=== PATIENT | female | born 1955 | race Caucasian/White ===

== ENCOUNTER 2018-05-21 21:24 | Inpatient (IN) ==
[2018-05-21] MEDS ORDERED: Morphine Inj 4 MG/ML Vial IV.PUSH ONE (21:49)
[2018-05-21] MEDS ORDERED: Famotidine PF Inj 20 MG/2 ML Vial IV.PUSH ONE (21:49)
[2018-05-21] MEDS ORDERED: Sod Chloride 0.9% Inj 1,000 ML IV.CONT SCH (22:00)
--- NOTE | 2018-05-21 22:11 | XR ---
EXAM DATE: 05/21/2018 9:58 PM EST AGE/SEX: 62 years / Female INDICATIONS: Short of breath. CLINICAL DATA: This is the patient's initial encounter. Patient reports that signs and symptoms have been present for 1 day and indicates a pain score of 0/10. MEDICAL/SURGICAL HISTORY: Hypercholesterolemia. Hypertension. Appendectomy. COMPARISON: No prior exams available for comparison. FINDINGS: The heart size is normal. The lungs are free of focal consolidation. There is a possible calcified gr anuloma in the left lower lung. No effusion is seen. CONCLUSION: No acute cardiopulmonary process. Electronically signed by: Trev Kessler MD Board Certified Radiologist 05/21/2018 10:10 PM EST
--- NOTE | 2018-05-21 22:12 | ED ---
HPI General Chief Complaint: Abdominal Pain Stated Complaint: Abd Pain/Diarrhea/Vomiting [id number] Time Seen by Provider: 05/21/18 21:49 Source: patient Mode of arrival: ambulatory Limitations: no limitations History of Present Illness HPI narrative: 62-year-old female with history of hypertension and GERD no previous abdominal surgeries presents to the emergency department for complaint of 4 days of progressively worsening abdominal pain 9/10 in intensity associated with nausea vomiting no hematemesis no coffee-ground emesis no bilious emesis and frequent watery diarrhea associated with blood and mucus. Patient states that she has had similar type symptoms although less intense less severe and shorter in duration over the past 6 months. Patient is visiting here from [place]. Patient arrived here 4 days ago. Patient states 5-6 days ago she denies any dietary indiscretion well water ingestion or foreign travel that may have precipitated the symptoms. has been eating the same foods. Couple bought a house here and has been here working on the house and the just recently came to the area. Patient states over the past 6 months when she is being having episodes of vomiting abdominal pain and diarrhea she has not discussed it with her primary care provider in [place]. Patient states she presents now because over the past 4 days symptoms have worsened. Patient reports subjective fever and reports recorded fever around 100 F. Patient also reports having some headache. No sinus pressure drainage no sore throat no earache no neck stiffness no reported chest pain or shortness of breath or cough. Patient denies any dysuria frequency or urgency. Patient is unable to identify exacerbating or alleviating factors. Patient is not able to correlate symptoms with dietary intake. Patient does have history of hypertension and GERD and has been taking her medications as prescribed. Headache is not sudden onset thunderclap or worst ever. Symptoms are worsened by her sitting upright abdominal symptoms are improved by resting supine. MD complaint: Reports abdominal pain Onset (ago): day(s) (4 days; 6 months intermittently) Pain Consistency: intermittent Location: Reports periumbilical, LUQ and RUQ Severity: severe Severity scale (1-10): 9 Quality: Reports cramping, aching, fullness and dull Radiation: Reports none Migration to: Reports periumbilical, LUQ and RUQ Relieving factors: nothing Exacerbating factors: nothing Context: Reports history of similar episodes ("less intense over the past 6 months); Denies foreign travel, possible food poisoning, sick contacts, recent antibiotic use, recent surgery/procedure and recent injury Associated symptoms: Reports nausea, vomiting, diarrhea, fever ("around 100F") and chills; Denies constipation, dysuria, hematemesis, hematochezia, melena, hematuria, anorexia and syncope Treatments prior to arrival: Denies NSAIDs, prescription analgesics and antacids Related Data Home Medications Medication Instructions Recorded Confirmed omeprazole 40 mg PO DAILY 05/21/18 05/21/18 valsartan 40 mg PO DAILY 05/21/18 Allergies Allergy/AdvReac Type Severity Reaction Status Date / Time Penicillins Allergy Severe Hives Verified 05/21/18 22:31 Review of Systems ROS: all other systems reviewed are negative PMFSH History History Provided By: Patient (htn gerd) Medical History Medical History Acid reflux (Acute) High blood pressure (Acute) Uterine fibroid (Acute) Social History Social History Substance History: No History of Abuse Smoking Status: Never smoker How Often Do You Have a Drink Containing Alcohol: 4 or more times a week Recent Travel in [facility] within the Last 8 Weeks: Yes Recent Out of Country Travel within the Last 8 Weeks: No Exam Narrative Exam Narrative: GENERAL: Well-nourished, well-developed patient. No acute distress no respiratory distress SKIN: Focused skin assessment warm/dry. HEAD: Normocephalic. EYES: No scleral icterus. No injection or drainage. NECK: Supple, trachea midline. No JVD or lymphadenopathy. CARDIOVASCULAR: Regular rate and rhythm without murmurs, gallops, or rubs. Bilateral radial and dorsalis pedis pulses 2+ to palpation RESPIRATORY: Breath sounds equal bilaterally. No accessory muscle use. GASTROINTESTINAL: Abdomen soft, diffusely tender primarily bilateral upper quadrants and periumbilical area however mild bilateral lower quadrant tenderness left greater than right to palpation without guarding or rebound, nondistended. MUSCULOSKELETAL: No cyanosis, or edema. BACK: Nontender without obvious deformity. No CVA tenderness. Course Initial Documented Vital Signs Temperature 98.2 F 05/21/18 21:28 Pulse Rate 113 H 05/21/18 21:28 Respiratory Rate 18 05/21/18 21:28 Blood Pressure 145/71 H 05/21/18 21:28 Pulse Oximetry 97 05/21/18 21:28 Last Documented Vital Signs Temperature 98.2 F 05/21/18 21:28 Pulse Rate 78 05/21/18 23:24 Respiratory Rate 16 05/21/18 23:26 Blood Pressure 113/67 05/21/18 23:24 Pulse Oximetry 99 05/21/18 23:24 Medical Decision Making MDM Narrative Medical decision making narrative: 62-year-old female presents to the emergency department for complaint of 4 days of worsening abdominal pain with crampy discomfort frequent diarrhea watery dark in color with blood and mucus and episodes of nausea and vomiting. IV access obtained specimens collections sent for resulting patient administered IV fluids, Zofran, Pepcid, and morphine sulfate. Patient will be kept n.p.o. CT abdomen pelvis ordered. CBC with automated differential total white cell count is 15,300 with 84% neutrophils; chemistries remarkable for being grossly within normal range; lactic acid is not elevated 1.0; AST and ALT are mildly elevated; lipase is elevated at 497; UA shows ketones otherwise unremarkable; chest x-ray is normal ; CT abdomen pelvis with IV contrast the appendix is normal does show some mesenteric misting and no obstruction or diverticulitis some hepatic steatosis. Patient presents with heart rate of 113 white cell count of 15,300 with abdominal pain with diarrheal illness and elevated lipase Discussed patient with Dr. Parr who will admit for observation for n.p.o. status IV fluid rehydration reassess lipase and white count as well as Sirs/ sepsis status. Medical Screen Exam Complete: Yes Emergency Medical Condition: Yes Differential Diagnosis Differential Diagnosis: Abdominal pain, gastritis, enteritis, pancreatitis, biliary colic, cholecystitis, peptic ulcer disease, diverticulitis, colitis, UTI , viral syndrome, food poisoning, influenza, dehydration Medical Records Medical records reviewed: Yes I reviewed the patient's medical records. no prior visits Lab Data Lab results reviewed: Yes I reviewed the patient's lab results. Result diagrams: 05/21/18 21:20 05/21/18 21:20 Lab Results 05/21/18 05/21/18 05/21/18 Range/Units 21:15 21:20 21:20 CBC w Diff WBC (4.0-11.0) th/mm3 RBC (4.00-5.30) mil/mm3 Hgb (11.6-15.3) gm/dL Hct (35.0-46.0) % MCV (80.0-100.0) fL MCH (27.0-34.0) pg MCHC (32.0-36.0) % RDW (11.6-17.2) % Plt Count (150-450) th/mm3 MPV (7.0-11.0) fL Neut % (Auto) (16.0-70.0) % Lymph % (Auto) (9.0-44.0) % Meigs % (Auto) (0.0-8.0) % Eos % (Auto) (0.0-4.0) % Baso % (Auto) (0.0-2.0) % Neut # (Auto) (1.8-7.7) th/mm3 Lymph # (Auto) (1.0-4.8) th/mm3 Meigs # (Auto) (0.0-0.9) th/mm3 Eos # (Auto) (0.0-0.4) th/mm3 Baso # (Auto) (0.0-0.2) th/mm3 WBC Differential Differential Comment PT 10.0 (9.8-11.6) sec INR 1.0 Ratio APTT 27.0 (23.4-31.7) sec Sodium (136-145) meq/L Potassium (3.5-5.1) meq/L Chloride (98-107) meq/L Carbon Dioxide (21.0-32.0) meq/L Anion Gap (5-15) meq/L BUN (7-18) mg/dL Creatinine (0.50-1.00) mg/dL Estimated GFR (>89) mL/min Random Glucose (74-106) mg/dL Lactic Acid 1.0 (0.4-2.0) mmol/L Calcium (8.5-10.1) mg/dL Magnesium (1.5-2.5) mg/dL Total Bilirubin (0.2-1.0) mg/dL AST (15-37) U/L ALT (10-53) U/L Alkaline Phosphatase (45-117) U/L Total Protein (6.4-8.2) g/dL Albumin (3.4-5.0) g/dL Lipase (73-393) U/L Urine Color Yellow (Yellw/Straw) Urine Clarity Clear (Clear) Urine pH 6.5 (5.0-8.5) Ur Specific [place] 1.020 (1.002-1.035) Urine Protein Negative (Neg-Trace) mg/dL Urine Glucose (UA) Negative (Negative) mg/dL Urine Ketones 40 H (Negative) mg/dL Urine Occult Blood Small H (Negative) Urine Nitrate Negative (Negative) Urine Bilirubin Negative (Negative) Urine Urobilinogen 0.2 (Less than 2) mg/dL Ur Leukocyte Esterase Negative (Negative) Urine RBC 0-3 (0-3) /hpf Urine WBC 0-5 (0-5) /hpf Ur Squamous Epith Cells 0-5 (0-5) /hpf Urine Mucus Few H (Occasional) /lpf Micro UA Comment Culture not ind Ur Microscopic Review Microscopic reviewed Urine Culture Comments Culture not ind Blood Type Blood Type Recheck Antibody Screen 05/21/18 05/21/18 05/21/18 Range/Units 21:20 21:20 21:30 CBC w Diff Auto diff final WBC 15.3 H (4.0-11.0) th/mm3 RBC 3.89 L (4.00-5.30) mil/mm3 Hgb 13.5 (11.6-15.3) gm/dL Hct 39.5 (35.0-46.0) % MCV 101.7 H (80.0-100.0) fL MCH 34.7 H (27.0-34.0) pg MCHC 34.1 (32.0-36.0) % RDW 12.6 (11.6-17.2) % Plt Count 229 (150-450) th/mm3 MPV 8.4 (7.0-11.0) fL Neut % (Auto) 84.1 H (16.0-70.0) % Lymph % (Auto) 5.2 L (9.0-44.0) % Meigs % (Auto) 9.9 H (0.0-8.0) % Eos % (Auto) 0.1 (0.0-4.0) % Baso % (Auto) 0.7 (0.0-2.0) % Neut # (Auto) 12.9 H (1.8-7.7) th/mm3 Lymph # (Auto) 0.8 L (1.0-4.8) th/mm3 Meigs # (Auto) 1.5 H (0.0-0.9) th/mm3 Eos # (Auto) 0.0 (0.0-0.4) th/mm3 Baso # (Auto) 0.1 (0.0-0.2) th/mm3 WBC Differential . Differential Comment . PT (9.8-11.6) sec INR Ratio APTT (23.4-31.7) sec Sodium 131 L (136-145) meq/L Potassium 3.7 (3.5-5.1) meq/L Chloride 97 L (98-107) meq/L Carbon Dioxide 22.9 (21.0-32.0) meq/L Anion Gap 11 (5-15) meq/L BUN 15 (7-18) mg/dL Creatinine 0.94 (0.50-1.00) mg/dL Estimated GFR 61 L (>89) mL/min Random Glucose 114 H (74-106) mg/dL Lactic Acid (0.4-2.0) mmol/L Calcium 8.3 L (8.5-10.1) mg/dL Magnesium 2.0 (1.5-2.5) mg/dL Total Bilirubin 1.0 (0.2-1.0) mg/dL AST 77 H (15-37) U/L ALT 65 H (10-53) U/L Alkaline Phosphatase 109 (45-117) U/L Total Protein 8.1 (6.4-8.2) g/dL Albumin 3.7 (3.4-5.0) g/dL Lipase 497 H (73-393) U/L Urine Color (Yellw/Straw) Urine Clarity (Clear) Urine pH (5.0-8.5) Ur Specific [place] (1.002-1.035) Urine Protein (Neg-Trace) mg/dL Urine Glucose (UA) (Negative) mg/dL Urine Ketones (Negative) mg/dL Urine Occult Blood (Negative) Urine Nitrate (Negative) Urine Bilirubin (Negative) Urine Urobilinogen (Less than 2) mg/dL Ur Leukocyte Esterase (Negative) Urine RBC (0-3) /hpf Urine WBC (0-5) /hpf Ur Squamous Epith Cells (0-5) /hpf Urine Mucus (Occasional) /lpf Micro UA Comment Ur Microscopic Review Urine Culture Comments Blood Type O Negative Blood Type Recheck Required Antibody Screen Negative Imaging Data Radiologist's impression: Abdomen/Pelvis CT 05/21/18 21:49 CONCLUSION: 1. Induration of the central mesentery in the mid to lower abdomen. This is nonspecific. This can be seen with mesenteric panniculitis. This findings recently called a shyam mesentery sign. It can be associated with lymphoma or other carcinomas. There are no other potential signs of lymphoma or other carcinomas. 2. Hepatic steatosis with 2 focal hepatic lesions. These can be further evaluated with a abdominal MRI examination using a liver protocol. This could be performed on a nonemergent basis as an outpatient. 3. Suspected atelectasis at the lung bases. 4. Calcified leiomyomas. Chest X-Ray 05/21/18 21:49 CONCLUSION: No acute cardiopulmonary process. Discharge Plan Discharge Disposition Patient Disposition: ED Admit(ED Internal Use Only) Discharge Condition Condition: Stable Discharge Order Discharge Orders: ED Use Only Admit Order (Routine); Ordered 05/22/18 Ordered By: Sana Petty Discharge Details Diagnosis: Abdominal pain, Elevated lipase, SIRS (systemic inflammatory response syndrome) Physicians Team ED Provider: Sana Petty Primary Care Provider: NON STAFF,PROVIDER Rxs /Orders / Referrals /Forms Prescriptions: No Action valsartan 40 mg Tablet 40 mg PO DAILY RF: 0 omeprazole 40 mg Capsule,Delayed Release(Dr/Ec) 40 mg PO DAILY RF: 0 Status ED Status: With Doctor
[2018-05-21 22:17] LABS: Baso # (Auto) 0.1 th/mm3 (0.0-0.2); Baso % (Auto) 0.7 % (0.0-2.0); Eos % (Auto) 0.1 % (0.0-4.0); Hematocrit 39.5 % (35.0-46.0); Hemoglobin 13.5 gm/dL (11.6-15.3); Lymph # (Auto) 0.8 th/mm3 (1.0-4.8); Lymph % (Auto) 5.2 % (9.0-44.0); Mean Corpuscular HGB Conc 34.1 % (32.0-36.0); Mean Corpuscular Hemoglobin 34.7 pg (27.0-34.0); Mean Corpuscular Volume 101.7 fL (80.0-100.0); Mean Platelet Volume 8.4 fL (7.0-11.0); Mono # (Auto) 1.5 th/mm3 (0.0-0.9); Mono % (Auto) 9.9 % (0.0-8.0); Neut # (Auto) 12.9 th/mm3 (1.8-7.7); Neut % (Auto) 84.1 % (16.0-70.0); Platelet Count 229 th/mm3 (150-450); Red Blood Count 3.89 mil/mm3 (4.00-5.30); Red Cell Distribution Width 12.6 % (11.6-17.2); White Blood Count 15.3 th/mm3 (4.0-11.0)
[2018-05-21 22:26] LABS: Chloride 97 meq/L (98-107); Potassium 3.7 meq/L (3.5-5.1); Sodium 131 meq/L (136-145)
[2018-05-21 22:30] LABS: Albumin 3.7 g/dL (3.4-5.0); Anion Gap 11 meq/L (5-15); Calcium 8.3 mg/dL (8.5-10.1); Carbon Dioxide 22.9 meq/L (21.0-32.0); Glucose,Random 114 mg/dL (74-106); Lipase 497 U/L (73-393)
[2018-05-21 22:31] LABS: Blood Urea Nitrogen 15 mg/dL (7-18)
[2018-05-21 22:31] LABS: Bilirubin,Urine Negative (Negative); Clarity,Urine Clear (Clear); Color,Urine Yellow (Yellw/Straw); Glucose,Urine (UA) Negative (Negative); Leukocyte Esterase,Urine Negative (Negative); Nitrite,Urine Negative (Negative); PH,Urine 6.5 (5.0-8.5); Urobilinogen,Urine 0.2 mg/dL (Less than 2)
[2018-05-21 22:33] LABS: Alanine Aminotransferase 65 U/L (10-53); Aspartate Aminotransferase 77 U/L (15-37); Glomerular Filtration Rate 61 mL/min (>89)
[2018-05-21 22:35] LABS: Total Protein 8.1 g/dL (6.4-8.2)
[2018-05-21 22:36] LABS: Mucus,Urine Few /lpf (Occasional); RBC,Urine 0-3 /hpf (0-3); Squamous Epithelial Cell,Urine 0-5 /hpf (0-5); WBC,Urine 0-5 /hpf (0-5)
[2018-05-21 22:36] LABS: Alkaline Phosphatase 109 U/L (45-117)
--- NOTE | 2018-05-21 23:06 | CT ---
EXAM DATE: 05/21/2018 10:55 PM EST AGE/SEX: 62 years / Female INDICATIONS: Abdominal pain and diarrhea. CLINICAL DATA: This is the patient's initial encounter. Patient reports that signs and symptoms have been present for 4 - 6 days and indicates a pain score of 9/10. MEDICAL/SURGICAL HISTORY: . Uterine fibroids. None. ORAL CONTRAST: No oral contrast ingested. RADIATION DOSE: 8.65 CTDI (mGy) COMPARISON: No prior exams available for comparison. TECHNIQUE: Multiple contiguous axial images were obtained through the abdomen and pelvis following b olus infusion of 100 ml Omnipaque 350 (iohexol) nonionic water-soluble contrast as a single exam do se. No oral contrast ingested. Using automated exposure control and adjustment of the mA and/or kV a ccording to patient size, radiation dose was kept as low as reasonably achievable to obtain optimal d iagnostic quality images. DICOM format image data is available electronically for review and compari son. FINDINGS: Lower Lungs: There is some linear density seen at the lower lobes bilaterally likely related to atele ctasis. Liver: There is diffuse decreased density seen throughout the liver. There are 2 focal lesions includ ing a 2 cm low-density mass in the superior aspect of the right lobe of the liver and a more subtle 1 .6 mm or hypodense mass seen in the medial segment left lobe of the liver. The gallbladder is not dis tended. There is a focal 0.7 cm area of increased density seen in the inferior aspect of the gallblad john. The gallbladder wall does not appear thickened. Significant biliary dilatation is not seen. Spleen: Homogeneous density without enlargement. Pancreas: Unremarkable without mass or calcification. Kidneys: Normal in size and shape. No evidence of mass or hydronephrosis. Adrenal Glands: Unremarkable. Aorta: The aorta and proximal iliac vessels are grossly unremarkable without aneurysmal dilation. Bowel/Mesentery: There is hazy density seen in the central aspect of the mesentery. There are some s mall lymph nodes seen in the central mesentery measuring up to 0.7 cm. And induration is seen in the central mid abdomen extending down to nearly the pelvic inlet region. Significant dilatation or thick ening of the bowel is not seen. The appendix is seen and appears normal. Abdominal Wall: Intact. Retroperitoneum: No evidence of adenopathy in the retrocrural, para-aortic, or deep pelvic regions. Bladder: Contours are smooth. Reproductive Organs: There are multiple calcified lesions seen throughout the uterus consistent with leiomyomatous change. Inguinal: The inguinal region is unremarkable without evidence of adenopathy. Bony Structures: Degenerative change in the lumbar spine. CONCLUSION: 1. Induration of the central mesentery in the mid to lower abdomen. This is nonspecific. This can be seen with mesenteric panniculitis. This findings recently called a shyam mesentery sign. It can be a ssociated with lymphoma or other carcinomas. There are no other potential signs of lymphoma or other carcinomas. 2. Hepatic steatosis with 2 focal hepatic lesions. These can be further evaluated with a abdominal M RI examination using a liver protocol. This could be performed on a nonemergent basis as an outpatien t. 3. Suspected atelectasis at the lung bases. 4. Calcified leiomyomas. Electronically signed by: Trev Kessler MD Board Certified Radiologist 05/21/2018 11:04 PM EST
[2018-05-22] MEDS ORDERED: Ciprofloxacin 400 MG/200 ML 400 MG/200 ML PIGGYBACK IV.SIG ONE (00:04)
[2018-05-22] MEDS ORDERED: Sod Chloride 0.9% Inj 1,000 ML IV.SIG ONE (00:05)
[2018-05-22] MEDS ORDERED: Bisacodyl 10 MG Supp RECTAL PRN (00:20)
[2018-05-22] MEDS ORDERED: Morphine Sulfate Inj 2 MG/ML Vial IV.PUSH PRN (00:28)
[2018-05-22] MEDS: Acetaminophen 325 MG Tablet PO PRN ×3 (02:17→23:39)
[2018-05-22] MEDS: Morphine Inj 4 MG/ML Vial IV.PUSH PRN (09:33)
[2018-05-22] MEDS: Ciprofloxacin 400 MG/200 ML 400 MG/200 ML PIGGYBACK IV.SIG SCH (13:29)
[2018-05-22 15:16] LABS: Hepatitis A IgM Antibody Nonreactive (Nonreactive); Hepatitits B Surface Antigen Nonreactive (Nonreactive)
--- NOTE | 2018-05-22 16:26 | P.HPIM ---
History of Present Illness Primary Care Physician: PROVIDER NON STAFF Chief Complaint: diarrhea for 4 days History of Present Illness: 62 yo M with h/o GERD and HTN from [place],been here in [place] for 4 days, presented with diarrhea. Reports diarrhea about 6-7 episodes per day,associated with abdominal pain, subjective fever, chills. Stools said to be watery, with mucous, sometimes dark.no sick contacts. no recent travel except for coming here to [place]. Also has nausea, vomiting. Has associated headache.No urinary symptoms. No chest pain or shortness of breath. No nasal or ear symptoms. Reports having weekly episodes of nausea/vomiting for the last 6 months, symptoms usually not immediate, may happen in the morning. ROS is negative except as stated above. 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 labs significant for leucocytosis 15,mildly elevated liver enzymes. MRI abdomen was ordered from ER. Patient was admitted to the medical floor for further mx. - Review of Systems Review of Systems: all other systems reviewed are negative [facility] Medical History Medical History Acid reflux (Acute) High blood pressure (Acute) Uterine fibroid (Acute) Social History Social History Substance History: No History of Abuse Second Hand Smoke Exposure: No Smoking Status: Never smoker How Often Do You Have a Drink Containing Alcohol: 4 or more times a week Recent Travel in [facility] within the Last 8 Weeks: Yes Recent Out of Country Travel within the Last 8 Weeks: No Immunization History Tetanus Immunization: <5 Years Hx Influenza Vaccine This Season: No Medications and Allergies Allergies Allergy/AdvReac Type Severity Reaction Status Date / Time Penicillins Allergy Severe Hives Verified 05/21/18 22:31 Home Medications Medication Instructions Recorded Confirmed Type omeprazole 40 mg PO DAILY 05/21/18 05/21/18 History valsartan 40 mg PO DAILY 05/21/18 History Active Medications: Active Medications Acetaminophen (Tylenol) 650 mg PO Q4H PRN PRN Reason: Temp > 100.4 Last Admin: 05/22/18 13:29 Dose: 650 mg Al Hydroxide/Mg Hydroxide (Milk Of Magnesia Liq) 30 ml PO Q12H PRN PRN Reason: Mild Constipation Bisacodyl (Dulcolax Supp) 10 mg RECTAL DAILY PRN PRN Reason: SEVERE CONSITIPATION Ciprofloxacin/Dextrose (Cipro 400 Mg/200 Ml Inj) 400 mg in 200 mls @ 200 mls/ hr IV.SIG Q12H [facility] Last Infusion: 05/22/18 14:33 Dose: Infused Metronidazole/Sodium Chloride (Flagyl 500 Mg Inj) 100 mls @ 100 mls/hr IV.SIG Q8H [facility] Last Infusion: 05/22/18 09:22 Dose: Infused Lactulose (Lactulose Liq) 30 ml PO DAILY PRN PRN Reason: SEVERE CONSITIPATION Morphine Sulfate (Morphine Inj) 2 mg IV.PUSH Q3H PRN PRN Reason: PAIN SCALE 1 TO 10 Last Admin: 05/22/18 09:33 Dose: 2 mg Ondansetron HCl (Zofran Inj) 4 mg IV.PUSH Q6H PRN PRN Reason: NAUSEA OR VOMITING Sennosides (Senokot) 17.2 mg PO Q12H PRN PRN Reason: Moderate Constipation Sodium Chloride (Ns Flush) 2 ml IV.FLUSH PRN PRN PRN Reason: FLUSH AFTER USING IV ACCESS Sodium Chloride (Ns Flush) 2 ml IV.FLUSH BID [facility] Last Admin: 05/22/18 08:30 Dose: Not Given Sodium Chloride (Ns Flush) 2 ml IV.FLUSH PRN PRN PRN Reason: FLUSH AFTER USING IV ACCESS Physical Exam Vital signs: Last Vital Signs Temp 100.3 F H 05/22/18 12:00 Pulse 90 05/22/18 12:00 Resp 20 05/22/18 12:00 BP 128/74 05/22/18 12:00 Pulse Ox 96 05/22/18 12:00 Intake & Output 05/20/18 05/21/18 05/22/18 05/23/18 06:59 06:59 06:59 06:59 Intake Total 1300 / 1300 1300 / 1300 Balance 1300 / 1300 1300 / 1300 Weight 60.9 kg Narrative: GENERAL: middle aged woman, in good general condition, not in distress. HEENT: not pale,anicteric. CARDIOVASCULAR: Regular rate and rhythm without murmurs, gallops, or rubs. RESPIRATORY: Clear to auscultation. Breath sounds equal bilaterally. No wheezes , rales, or rhonchi. GASTROINTESTINAL: Abdomen soft, non-tender, nondistended. Normal active bowel sounds MUSCULOSKELETAL: Extremities without clubbing, cyanosis, or edema. NEURO: Alert & Oriented x4 to person, place, time, situation. Moves all ext x4 Results Labs CBC & Chem 7: 05/21/18 21:20 05/21/18 21:20 Imaging Impressions Abdomen/Pelvis CT 05/21/18 21:49 CONCLUSION: 1. Induration of the central mesentery in the mid to lower abdomen. This is nonspecific. This can be seen with mesenteric panniculitis. This findings recently called a shyam mesentery sign. It can be associated with lymphoma or other carcinomas. There are no other potential signs of lymphoma or other carcinomas. 2. Hepatic steatosis with 2 focal hepatic lesions. These can be further evaluated with a abdominal MRI examination using a liver protocol. This could be performed on a nonemergent basis as an outpatient. 3. Suspected atelectasis at the lung bases. 4. Calcified leiomyomas. Chest X-Ray 05/21/18 21:49 CONCLUSION: No acute cardiopulmonary process. Caprini VTE Risk Assessment Caprini VTE Risk Assessment: No/Low Risk (score <= 1) Caprini Risk Assessment Model: Point Value = 1 Point Value = 2 Point Value = 3 Point Value = 5 Age 41-60 Minor surgery BMI > 25 kg/m2 Swollen legs Varicose veins or History of unexplained or recurrent spontaneous Oral contraceptives or hormone replacement Sepsis (< 1 month) Serious lung disease, including pneumonia (< 1 month) Abnormal pulmonary function Acute myocardial infarction Congestive heart failure (< 1 month) History of inflammatory bowel disease Medical patient at bed rest Age 61-74 Arthroscopic surgery Major open surgery (> 45 min) Laparoscopic surgery (> 45 min) Malignancy Confined to bed (> 72 hours) Immobilizing plaster cast Central venous access Age >= 75 History of VTE Family history of VTE Factor V Leiden Prothrombin [id number] Lupus anticoagulant Anticardiolipin antibodies Elevated serum homocysteine Heparin-induced thrombocytopenia Other congenital or acquired thrombophilia Stroke (< 1 month) Elective arthroplasty Hip, pelvis, or leg fracture Acute spinal cord injury (< 1 month) Prophylaxis Regimen: Total Risk Factor Score Risk Level Prophylaxis Regimen 0-1 Low Early ambulation 2 Moderate Order ONE of the following: *Sequential Compression Device (SCD) *Heparin 5000 units SQ BID 3-4 Higher Order ONE of the following medications: *Heparin 5000 units SQ TID *Enoxaparin/Lovenox 40 mg SQ daily (WT < 150 kg, CrCl > 30 mL/min) *Enoxaparin/Lovenox 30 mg SQ daily (WT < 150 kg, CrCl > 10-29 mL/min) *Enoxaparin/Lovenox 30 mg SQ BID (WT < 150 kg, CrCl > 30 mL/min) AND/OR *Sequential Compression Device (SCD) 5 or more Highest Order ONE of the following medications: *Heparin 5000 units SQ TID (Preferred with Epidurals) *Enoxaparin/Lovenox 40 mg SQ daily (WT < 150 kg, CrCl > 30 mL/min) *Enoxaparin/Lovenox 30 mg SQ daily (WT < 150 kg, CrCl > 10-29 mL/min) *Enoxaparin/Lovenox 30 mg SQ BID (WT < 150 kg, CrCl > 30 mL/min) AND *Sequential Compression Device (SCD) Assessment and Plan Plan 62 yo F with h/o GERD, HTN who presented with 4 day h/o diarrhea and abdominal pain. Abdominal pain/Diarrhea: etiology unclear, may be gastroenteritis. 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 obtain stool cultures, follow up blood cultures, check hepatitis A serology. keep on IV Cipro and Flagyl for now. Mildly elevated liver enzymes--likely related to hepatic steatosis.check viral hepatitis w/up. h/o GERD-continue Omeprazole. DVT ppx-low risk, ambulate H&P: Quality VTE Deep Vein Thrombosis/Pulmonary Embolism Present on Admission: No
[2018-05-22] MEDS ORDERED: Gadobutrol PF 7.5 MMOL/7.5 ML Vial (for RAD) IV.SIG ONE (17:40)
--- NOTE | 2018-05-22 17:58 | MR ---
EXAM DATE: 05/22/2018 5:43 PM EST AGE/SEX: 62 years / Female INDICATIONS: Abdominal pain. Abnormal CT. Liver lesions. CLINICAL DATA: This is the patient's initial encounter. Patient reports that signs and symptoms have been present for 3 days and indicates a pain score of 4/10. MEDICAL/SURGICAL HISTORY: None. . Fibroids removed. COMPARISON: [facility], CT ABDOMEN & PELVIS W CONTRAST, 05/21/2018. . TECHNIQUE: Multiplanar, multisequence images of the abdomen were obtained prior to and following adm inistration of 6.5 ml Gadavist (gadobutrol) contrast as a single exam dose with dynamic multiphase te chnique. FINDINGS: Liver: The liver measures 17 cm in length and demonstrates signal loss on out of phase imaging indica ting steatosis. At the liver dome in the region of segment 8 there is a T2 hyperintense lesion measur ing approximately 2.2 x 2.1 x 1.7 cm. It appears to have a septation along the superior aspect. Follo wing contrast administration no definite internal enhancement is appreciated. The low-density area id entified within segment [address] measures approximately 1.6 cm on this examination and appears to represent an area of more focal severe steatosis. Hepatic vasculature demonstrates no abnormality. No bile duct dilatation is appreciated. Gallbladder: There is a suspected a stone in the fundus and a curvilinear low signal intensity struct ure on the T2 sequence in the gallbladder is not definitively seen on the other sequences. No gallbla dder wall thickening is identified. Spleen: Within normal limits. Pancreas: Within normal limits. Adrenals: Within normal limits. Kidneys: Symmetric size and enhancement. No hydronephrosis is present. There is a macroscopic fat-con taining mass arising from the lower pole of the left kidney measuring approximately 2.8 x 2.5 cm. Other: Aorta is nonaneurysmal and no lymphadenopathy is seen. Inflammatory changes remain present in the central small bowel mesentery. CONCLUSION: 1. Hepatic steatosis with nonenhancing lesion in segment 8 measuring 2.2 cm likely representing a mi nimally complex cyst. The other suspected lesion identified on recent CT has features suggestive of m ore severe focal steatosis. No suspicious liver lesion is identified. 2. 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 3. Persistent inflammatory change within the central small bowel mesentery. Electronically signed by: Trev Stewart MD Board Certified Radiologist 05/22/2018 5:57 PM EST
[2018-05-23] MEDS: Ciprofloxacin 400 MG/200 ML 400 MG/200 ML PIGGYBACK IV.SIG SCH ×2 (00:47→14:34)
[2018-05-23] MEDS: Morphine Inj 4 MG/ML Vial IV.PUSH PRN ×5 (00:50→23:37)
[2018-05-23 06:46] LABS: Baso % (Auto) 0.2 % (0.0-2.0); Eos # (Auto) 0.1 th/mm3 (0.0-0.4); Eos % (Auto) 0.4 % (0.0-4.0); Hematocrit 36.5 % (35.0-46.0); Lymph # (Auto) 0.9 th/mm3 (1.0-4.8); Mean Corpuscular Hemoglobin 34.5 pg (27.0-34.0); Mean Corpuscular Volume 104.4 fL (80.0-100.0); Mean Platelet Volume 9.3 fL (7.0-11.0); Mono # (Auto) 1.7 th/mm3 (0.0-0.9); Mono % (Auto) 13.2 % (0.0-8.0); Neut % (Auto) 79.2 % (16.0-70.0); Platelet Count 176 th/mm3 (150-450); Red Blood Count 3.49 mil/mm3 (4.00-5.30); White Blood Count 12.7 th/mm3 (4.0-11.0)
[2018-05-23 07:13] LABS: Chloride 97 meq/L (98-107); Potassium 3.2 meq/L (3.5-5.1); Sodium 131 meq/L (136-145)
[2018-05-23 07:23] LABS: Alanine Aminotransferase 33 U/L (10-53); Albumin 2.9 g/dL (3.4-5.0); Alkaline Phosphatase 88 U/L (45-117); Anion Gap 10 meq/L (5-15); Aspartate Aminotransferase 27 U/L (15-37); Blood Urea Nitrogen 15 mg/dL (7-18); Glomerular Filtration Rate 74 mL/min (>89); Glucose,Random 110 mg/dL (74-106); Total Protein 6.9 g/dL (6.4-8.2)
--- NOTE | 2018-05-23 10:35 | P.PNIM ---
Subjective Interval history: abdominal pain is improving, she did not have diarrhea episodes last night. Less bloated today. Physical Exam Vital signs: Last Vital Signs Temp 97.4 F L 05/23/18 04:00 Pulse 81 05/23/18 04:00 Resp 20 05/23/18 10:08 BP 119/67 05/23/18 04:00 Pulse Ox 95 05/23/18 04:00 Intake & Output 05/21/18 05/22/18 05/23/18 05/24/18 06:59 06:59 06:59 06:59 Intake Total 1300 / 1300 2800 / 2800 100 / 100 Output Total 200 / 200 Balance 1300 / 1300 2600 / 2600 100 / 100 Weight 60.9 kg 61 kg Narrative: GENERAL: middle aged woman, in good general condition, not in distress. HEENT: not pale,anicteric. CARDIOVASCULAR: Regular rate and rhythm without murmurs, gallops, or rubs. RESPIRATORY: Clear to auscultation. Breath sounds equal bilaterally. No wheezes , rales, or rhonchi. GASTROINTESTINAL: Abdomen soft, mildly tender, nondistended. Normal active bowel sounds MUSCULOSKELETAL: Extremities without clubbing, cyanosis, or edema. NEURO: Alert & Oriented x4 to person, place, time, situation. Moves all ext x4 Results Labs CBC & Chem 7: 05/23/18 05:25 05/23/18 05:25 Labs: Microbiology 05/21/18 21:20 Blood - Peripheral Aerobic Blood Culture - Preliminary No growth in 1 day 05/21/18 21:20 Blood - Peripheral Anaerobic Blood Culture - Preliminary No growth in 1 day 05/21/18 21:20 Blood - Peripheral Aerobic Blood Culture - Preliminary No growth in 1 day 05/21/18 21:20 Blood - Peripheral Anaerobic Blood Culture - Preliminary No growth in 1 day Imaging Imaging: Impressions Abdomen MRI 05/22/18 00:00 CONCLUSION: 1. Hepatic steatosis with nonenhancing lesion in segment 8 measuring 2.2 cm likely representing a minimally complex cyst. The other suspected lesion identified on recent CT has features suggestive of more severe focal steatosis. No suspicious liver lesion is identified. 2. 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 3. Persistent inflammatory change within the central small bowel mesentery. Assessment and Plan Plan 62 yo F with h/o GERD, HTN who presented with 4 day h/o diarrhea and abdominal pain. Abdominal pain/Diarrhea: etiology unclear, may be gastroenteritis. 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 Prelim blood cultures negative so far, hepatitis serology non reactive. stool cultures--was not able to give sample keep on IV Cipro and Flagyl for another 24 hrs. Mildly elevated liver enzymes--likely related to hepatic steatosis. viral hepatitis w/up negative. Minimally complex Liver cyst noted on MRI. Patient reports she drinks a lot of alcohol, this is likely the etiology of hepatic steatosis. She has been counseled on cessation. check lipid profile. h/o GERD-continue Omeprazole. Hypokalemia--likely due to diarrhea, and poor PO intake. replete prn. check magnesium level. DVT ppx-low risk, ambulate Progress Note: Quality VTE Deep Vein Thrombosis/Pulmonary Embolism Present on Admission: No
[2018-05-24] MEDS: Ciprofloxacin 400 MG/200 ML 400 MG/200 ML PIGGYBACK IV.SIG SCH (02:10)
[2018-05-24] MEDS: Morphine Inj 4 MG/ML Vial IV.PUSH PRN ×2 (05:21→08:55)
[2018-05-24] MEDS: Acetaminophen 325 MG Tablet PO PRN (06:08)
[2018-05-24 07:48] LABS: Baso % (Auto) 0.4 % (0.0-2.0); Eos # (Auto) 0.1 th/mm3 (0.0-0.4); Eos % (Auto) 0.8 % (0.0-4.0); Hematocrit 36.2 % (35.0-46.0); Lymph # (Auto) 0.9 th/mm3 (1.0-4.8); Lymph % (Auto) 7.2 % (9.0-44.0); Mean Corpuscular Hemoglobin 34.7 pg (27.0-34.0); Mean Platelet Volume 9.4 fL (7.0-11.0); Mono # (Auto) 1.8 th/mm3 (0.0-0.9); Mono % (Auto) 14.4 % (0.0-8.0); Neut # (Auto) 9.7 th/mm3 (1.8-7.7); Neut % (Auto) 77.2 % (16.0-70.0); Platelet Count 173 th/mm3 (150-450); Red Blood Count 3.45 mil/mm3 (4.00-5.30); White Blood Count 12.5 th/mm3 (4.0-11.0)
--- NOTE | 2018-05-24 09:02 | P.DS ---
DS: Providers Date of admission: 05/23/18 12:02 Primary care physician: PROVIDER NON STAFF Brief History from admission: 62 yo M with h/o GERD and HTN from [place],been here in [place] for 4 days, presented with diarrhea. Reports diarrhea about 6-7 episodes per day,associated with abdominal pain, subjective fever, chills. Stools said to be watery, with mucous, sometimes dark.no sick contacts. no recent travel except for coming here to [place]. Also has nausea, vomiting. Has associated headache.No urinary symptoms. No chest pain or shortness of breath. No nasal or ear symptoms. Reports having weekly episodes of nausea/vomiting for the last 6 months, symptoms usually not immediate, may happen in the morning. ROS is negative except as stated above. 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 labs significant for leucocytosis 15,mildly elevated liver enzymes. MRI abdomen was ordered from ER. Patient was admitted to the medical floor for further mx. - DS: Summary ISSUES ADDRESSED DURING THIS HOSPITALIZATION: 1.Abdominal pain/Diarrhea: etiology unclear, may be gastroenteritis. 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 blood cultures negative, hepatitis serology non reactive. stool cultures-could not be obtained since diarrhea subsided. Patient was treated with IV Cipro and Flagyl , supportive management with IV fluids. She responded well, her symptoms have completely subsided. 2.Mildly elevated liver enzymes--likely related to hepatic steatosis due to heavy alcohol use.. viral hepatitis w/up negative. Minimally complex Liver cyst noted on MRI. She has been counseled on cessation, and says she will work at it. 3.Hypokalemia--likely due to diarrhea, and poor PO intake. levels were replenished. Time Spent with Patient Total time spent providing and/or coordinating discharge services: Quality: VTE Deep Vein Thrombosis/Pulmonary Embolism Present on Admission: No Results Labs on day of discharge: Labs from last 24 hours 05/24/18 06:10 CBC w Diff Auto diff final WBC 12.5 H RBC 3.45 L Hgb 12.0 Hct 36.2 MCV 105.0 H MCH 34.7 H MCHC 33.0 RDW 13.0 Plt Count 173 MPV 9.4 Neut % (Auto) 77.2 H Lymph % (Auto) 7.2 L Crook % (Auto) 14.4 H Eos % (Auto) 0.8 Baso % (Auto) 0.4 Neut # (Auto) 9.7 H Lymph # (Auto) 0.9 L Crook # (Auto) 1.8 H Eos # (Auto) 0.1 Baso # (Auto) 0.0 WBC Differential . Differential Comment . Preliminary micro results at discharge 05/21/18 21:20 Aerobic Blood Culture - Preliminary Blood - Peripheral No growth in 2 days Anaerobic Blood Culture - Preliminary No growth in 2 days 05/21/18 21:20 Aerobic Blood Culture - Preliminary Blood - Peripheral No growth in 2 days Anaerobic Blood Culture - Preliminary No growth in 2 days Impressions ITS Impressions Abdomen/Pelvis CT 05/21/18 21:49 CONCLUSION: 1. Induration of the central mesentery in the mid to lower abdomen. This is nonspecific. This can be seen with mesenteric panniculitis. This findings recently called a shyam mesentery sign. It can be associated with lymphoma or other carcinomas. There are no other potential signs of lymphoma or other carcinomas. 2. Hepatic steatosis with 2 focal hepatic lesions. These can be further evaluated with a abdominal MRI examination using a liver protocol. This could be performed on a nonemergent basis as an outpatient. 3. Suspected atelectasis at the lung bases. 4. Calcified leiomyomas. Chest X-Ray 05/21/18 21:49 CONCLUSION: No acute cardiopulmonary process. Abdomen MRI 05/22/18 00:00 CONCLUSION: 1. Hepatic steatosis with nonenhancing lesion in segment 8 measuring 2.2 cm likely representing a minimally complex cyst. The other suspected lesion identified on recent CT has features suggestive of more severe focal steatosis. No suspicious liver lesion is identified. 2. 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 3. Persistent inflammatory change within the central small bowel mesentery. Discharge Plan Discharge Disposition Patient Disposition: 01 Discharge Home Discharge Condition Condition: Stable Discharge Order Discharge Orders: Discharge Order (Routine); Ordered 05/24/18 Ordered By: Janki Coronado Discharge Details Anticipated Discharge Date: 05/24/18 Physicians Team Primary Care Provider: NON STAFF,PROVIDER Attending Provider: Janki Coronado Rxs /Orders / Referrals /Forms Prescriptions: New ciprofloxacin HCl 500 mg tablet 500 mg PO BID Qty: 10 RF: 0 metronidazole 500 mg tablet 500 mg PO Q8H Qty: 15 RF: 0 Continue valsartan 40 mg Tablet 40 mg PO DAILY RF: 0 omeprazole 40 mg Capsule,Delayed Release(Dr/Ec) 40 mg PO DAILY RF: 0 Referrals: NON STAFF,PROVIDER [Primary Care Provider] - See Instructions ( Please call the physician's office to book the appointment to be seen within [].) Status ED Status: Left Department
== END 2018-05-24 10:48 | disposition home or self-care (01) ==
LOC: PHED 21:24 → PHEDA 21:24 → PH3 05-22 01:27
PROVIDERS: ADMIT Hospitalist; ATTEND Hospitalist